=== PATIENT | male | born 1995 | race African-American/Black ===

== ENCOUNTER 2017-05-04 12:58 | Emergency (ER) | payer OTHER, SELFPAY | END 2017-05-04 14:15 | disposition home or self-care (01) | LOC: MADERS 12:58 | DX: L73.1 Pseudofolliculitis barbae (principal); F17.210 Nicotine dependence, cigarettes, uncomplicated | CPT/HCPCS: 99283 ==

== ENCOUNTER 2019-08-30 13:59 | Emergency (ER) | payer BC, OTHER | END 2019-08-30 15:23 | disposition home or self-care (01) | LOC: MADERS 13:59 | DX: J20.9 Acute bronchitis, unspecified (principal); F17.210 Nicotine dependence, cigarettes, uncomplicated | CPT/HCPCS: 87804; 99283 ==